=== PATIENT | female | born 1980 | race Caucasian/White ===

== ENCOUNTER 2022-03-14 23:38 | Emergency (ER) | payer OTHER ==
[~2022-03-14] VITALS: Ht 165.1 cm; Wt 85.7 kg
[~2022-03-14 23:38] MED LIST: ANAPROX DS550 MG PO; BENTYL10 MG PO; CATAFLAM50 MG PO; DARVOCET N 1001 TAB PO; HYDROCODONE BIT1 T11 PO; MIRENA52 MG IU; MOTRIN800 MG PO; NKHM; NORFLEX100 MG PO; PREDNISONE20 M1 PO; VIBRA-TAB100 MG PO; ZYRTEC10 MG PO
[2022-03-15] MEDS ORDERED: ZOLPIDEM10 MG PO
[2022-03-15 00:05] VITALS: BP 149/70
[2022-03-15] MEDS ORDERED: HYDROCODONE-AC1 EAC1 PO (05:25)
== END 2022-03-15 05:30 | disposition left against medical advice (07) ==
LOC: ED 23:38
DX: M54.50 Low back pain, unspecified (principal); M79.89 Other specified soft tissue disorders; Z90.49 Acquired absence of other specified parts of digestive tract; Z98.890 Other specified postprocedural states